=== PATIENT | female | born 1930 | race Caucasian/White ===

== ENCOUNTER 2016-11-30 23:36 | Inpatient (IN) | payer MEDICARE, OTHER ==
[~2016-11-30] VITALS: Ht 152.4 cm; Wt 76.3 kg
[~2016-11-30 23:36] MED LIST: ACID CONTROLLER20 M1 PO; ASCRIPTIN325 MG PO; ASPIRIN325 M2 PO; B12100 MC1 PO; CENTRUM SILVER1 EACH PO; CLOPIDOGREL75 MG PO; FISH OIL 10001000 MG PO; HYDROCODONE/ACE1 T12 PO; LORAZEPAM0.5 MG PO; METOPROLOL SR50 MG PO; METOPROLOL SUCC50 M2 PO; OMEGA 31000 MG PO; OXYBUTYNIN5 MG PO; OYSTER CALCIUM/1 TA1 PO; PEPCID20 MG PO; PLAVIX75 MG PO; PRAVACHOL40 MG PO; PRAVASTATIN SOD40 MG PO; SERTRALINE50 MG PO; VITAMIN D-32000 UNI1 PO; ZOFRAN ODT4 MG SL; [UNRECOGNIZED DRUG - OTHER] OS
[2016-11-30 23:51] VITALS: BP 180/103
[2016-11-30 23:58] LABS: BASO % 0.4 % (0.0-1.0); EOS # 0.1 10*3/uL (0.0-0.4); EOS % 1.5 % (1.0-4.0); HEMATOCRIT 39.9 % (37.0-47.0); HEMOGLOBIN 12.9 g/dl (12.0-16.0); IG # 0.1 10*3/uL (0.0-0.1); LYMPH # 2.1 10*3/uL (1.3-4.4); LYMPH % 30.6 % (27.0-41.0); MEAN CELL VOLUME 90.9 fl (81.0-99.0); MEAN CORPUSCULAR HGB 29.4 pg (27.0-31.0); MEAN CORPUSCULAR HGB CONC 32.3 g/dl (33.0-37.0); MEAN PLATELET VOLUME 11.4 fl (9.6-12.3); MONO # 0.5 10*3/uL (0.1-1.0); NEUT # 3.9 10*3/uL (2.3-7.9); NEUT % 58.8 % (47.0-73.0); PLATELET COUNT AUTOMATED 98 10*3/uL (130-400); RED BLOOD COUNT 4.39 10*6/uL (4.10-5.10); RED CELL DISTRI WIDTH 13.4 % (0-14.5); WHITE BLOOD COUNT 6.7 10*3/uL (4.8-10.8)
[2016-12-01 00:09] VITALS: BP 157/72
[2016-12-01 00:09] LABS: PROTHROMBIN TIME 10.1 SECONDS (9.0-12.4)
[2016-12-01 00:16] LABS: ALBUMIN 3.8 gm/dl (3.1-4.5); ALKALINE PHOSPHATASE 73 U/L (45-117); BILIRUBIN, TOTAL 0.3 mg/dl (0.2-1.0); BUN 22 mg/dl (7-24); CARBON DIOXIDE 25 mmol/L (21-32); CHLORIDE 109 mmol/L (98-107); EST GLOM FILT AFRICAN AMERICAN 41 ml/min; GLUCOSE 122 mg/dL (65-99); MAGNESIUM 2.2 mg/dL (1.5-2.1); POTASSIUM 3.7 mmol/L (3.5-5.1); SGOT/AST 13 IU/L (3-35); SGPT/ALT 14 U/L (12-78); SODIUM 144 mmol/L (136-145); TOTAL PROTEIN 7.4 gm/dL (6.4-8.2)
[2016-12-01 00:17] LABS: TROPONIN I < 0.015 ng/ml (<0.5)
[2016-12-01 00:30] LABS: BILIRUBIN NEGATIVE (NEGATIVE); BLOOD TRACE-INTACT (NEGATIVE); CLARITY CLEAR (CLEAR); COLOR YELLOW (YELLOW); GLUCOSE NEGATIVE (NEGATIVE); KETONE NEGATIVE (NEGATIVE); LEUKO ESTERASE 1+ (NEGATIVE); NITRITE NEGATIVE (NEGATIVE); PROTEIN TRACE (NEGATIVE); SPECIFIC GRAVITY 1.015 (1.005-1.030); UROBILINOGEN 0.2 E.U./dl (0.2-1.0)
[2016-12-01 00:40] LABS: WBC 16-20 wbc/hpf (0-5)
[2016-12-01 00:41] LABS: URINE REFLEX COMMENT YES (NO)
[2016-12-01 01:30] VITALS: BP 165/72
[2016-12-01 06:37] LABS: BASO % 0.2 % (0.0-1.0); EOS % 0.5 % (1.0-4.0); HEMATOCRIT 35.9 % (37.0-47.0); HEMOGLOBIN 11.7 g/dl (12.0-16.0); LYMPH # 1.4 10*3/uL (1.3-4.4); LYMPH % 22.8 % (27.0-41.0); MEAN CELL VOLUME 89.8 fl (81.0-99.0); MEAN CORPUSCULAR HGB 29.3 pg (27.0-31.0); MEAN CORPUSCULAR HGB CONC 32.6 g/dl (33.0-37.0); MEAN PLATELET VOLUME 11.5 fl (9.6-12.3); MONO # 0.5 10*3/uL (0.1-1.0); MONO % 7.9 % (3.0-9.0); NEUT # 4.2 10*3/uL (2.3-7.9); PLATELET COUNT AUTOMATED 90 10*3/uL (130-400); RED CELL DISTRI WIDTH 13.3 % (0-14.5); WHITE BLOOD COUNT 6.2 10*3/uL (4.8-10.8)
[2016-12-01 06:51] LABS: CKMB 0.9 ng/ml (0.5-3.6); TROPONIN I 0.039 ng/ml (<0.5)
[2016-12-01 06:53] LABS: HEMOGLOBIN A1c 5.3 % (4.8-5.6)
[2016-12-01 07:03] LABS: PHOSPHOROUS 2.7 mg/dL (2.5-4.9); POTASSIUM 3.9 mmol/L (3.5-5.1); THYROID STIM HORMONE (HS) 1.08 uIU/ml (0.358-4.75)
[2016-12-01 08:00] VITALS: BP 123/58
[2016-12-01 12:00] VITALS: BP 154/90
[2016-12-01 12:23] LABS: CKMB 0.7 ng/ml (0.5-3.6); TROPONIN I 0.027 ng/ml (<0.5)
[2016-12-01 16:00] VITALS: BP 100/50
[2016-12-01 18:20] LABS: CKMB 0.8 ng/ml (0.5-3.6); TROPONIN I 0.017 ng/ml (<0.5)
[2016-12-01 20:00] VITALS: BP 120/59
[2016-12-02] VITALS: BP 130/62
[2016-12-02 04:00] VITALS: BP 115/52
[2016-12-02 07:53] LABS: BASO % 0.5 % (0.0-1.0); EOS # 0.1 10*3/uL (0.0-0.4); EOS % 1.5 % (1.0-4.0); HEMATOCRIT 36.9 % (37.0-47.0); HEMOGLOBIN 11.7 g/dl (12.0-16.0); LYMPH # 1.7 10*3/uL (1.3-4.4); LYMPH % 29.8 % (27.0-41.0); MEAN CORPUSCULAR HGB 29.2 pg (27.0-31.0); MEAN CORPUSCULAR HGB CONC 31.7 g/dl (33.0-37.0); MEAN PLATELET VOLUME 11.9 fl (9.6-12.3); MONO # 0.6 10*3/uL (0.1-1.0); NEUT # 3.3 10*3/uL (2.3-7.9); NEUT % 56.5 % (47.0-73.0); PLATELET COUNT AUTOMATED 87 10*3/uL (130-400); RED BLOOD COUNT 4.01 10*6/uL (4.10-5.10); RED CELL DISTRI WIDTH 13.5 % (0-14.5); WHITE BLOOD COUNT 5.8 10*3/uL (4.8-10.8)
[2016-12-02 08:00] VITALS: BP 176/82
[2016-12-02 08:07] LABS: POTASSIUM 4.2 mmol/L (3.5-5.1)
[2016-12-02] MEDS ORDERED: AGGRENOX 25/2001 EA PO (10:34)
[2016-12-02] MEDS ORDERED: METOPROLOL SUCC25 M2 PO (10:34)
[2017-01-11] MEDS ORDERED: PLAVIX75 M1 PO (21:35)
[2017-01-11] MEDS ORDERED: BUSPAR5 MG PO (21:36)
== END 2016-12-02 13:00 | disposition home or self-care (01) | DRG 71 ==
LOC: ED 23:36 → EDHOLD 12-01 00:52 → 4E 12-01 00:52
PROVIDERS: Family Medicine Adult Medicine; Student in an Organized Health Care Education/Training Program
DX: G93.41 Metabolic encephalopathy (principal); N39.0 Urinary tract infection, site not specified; D69.6 Thrombocytopenia, unspecified; G45.9 Transient cerebral ischemic attack, unspecified; E83.41 Hypermagnesemia; N18.3 Chronic kidney disease, stage 3 (moderate); R00.0 Tachycardia, unspecified; I25.10 Atherosclerotic heart disease of native coronary artery without angina pectoris; M19.90 Unspecified osteoarthritis, unspecified site; I12.9 Hypertensive chronic kidney disease with stage 1 through stage 4 chronic kidney disease, or unspecified chronic kidney disease; Z79.82 Long term (current) use of aspirin; Z79.899 Other long term (current) drug therapy; Z88.2 Allergy status to sulfonamides; Z88.8 Allergy status to other drugs, medicaments and biological substances; Z90.710 Acquired absence of both cervix and uterus; Z98.890 Other specified postprocedural states; Z80.0 Family history of malignant neoplasm of digestive organs; Z86.73 Personal history of transient ischemic attack (TIA), and cerebral infarction without residual deficits

== ENCOUNTER → 2018-09-21 | Outpatient (CLI) | payer MEDICARE, OTHER ==
[~2018-09-21] MED LIST changes: +AGGRENOX 25/2001 EA PO; +BUSPAR5 MG PO; +METOPROLOL SUCC25 M2 PO; +PLAVIX75 M1 PO
== END | disposition home or self-care (01) ==
LOC: CARD 11:00
DX: Z03.89 Encounter for observation for other suspected diseases and conditions ruled out (principal); I08.1 Rheumatic disorders of both mitral and tricuspid valves; I25.10 Atherosclerotic heart disease of native coronary artery without angina pectoris; R60.0 Localized edema